=== PATIENT | male | born 1950 | race Caucasian/White ===

== ENCOUNTER → 2021-04-27 | Outpatient (CLI) | payer MEDICARE, OTHER ==
[~2021-04-27] MED LIST: CATHETER FLUSH 10 ML SYR IV PRN; HOLD METFORMIN - RECEIVED CONTRAST 20 ML VIAL IV SCH; IOHEXOL 350 MG/ML 100 ML (OMNIPAQUE 350) VIAL IV ONE; NS 100 ML (IVPB) BAG IV ONE
[2021-04-27 10:08] LABS: POTASSIUM 4.2 MMOL/L (3.6-5.0); SODIUM 141 MMOL/L (135-145)
[2021-04-27 10:09] LABS: ALANINE AMINOTRANSFERASE 24 U/L (0-55); ALBUMIN 4.7 GM/DL (3.2-4.5); ALKALINE PHOSPHATASE 123 U/L (40-136); BILIRUBIN,TOTAL 0.6 MG/DL (0.1-1.0); BUN/CREATININE RATIO 13; CALCIUM 9.2 MG/DL (8.5-10.1); CARBON DIOXIDE 26 MMOL/L (21-32); CHLORIDE 104 MMOL/L (98-107); CREATININE SERUM 0.96 MG/DL (0.60-1.30); GFR ESTIMATED > 60; GLUCOSE 98 MG/DL (70-105); TOTAL PROTEIN 7.4 GM/DL (6.4-8.2)
--- NOTE | 2021-04-27 10:53 | Diagnostic Imaging Report ---
PROCEDURE: CT angiography of the chest with contrast. TECHNIQUE: Multiple contiguous axial images were obtained through the chest after uneventful bolus administration of intravenous contrast. 3D reconstructed CTA MIP acquisitions were also performed. Auto Exposure Controls were utilized during the CT exam to meet ALARA standards for radiation dose reduction. INDICATION: Shortness of breath with bilateral leg swelling and elevated D-dimer. No prior studies are available for comparison. Evaluation of the pulmonary arterial system is without evidence of thromboembolism. No filling defects are seen within central, lobar or segmental branches. The thoracic aorta is normal caliber. There is no dissection. No pericardial or pleural fluid is identified. There are areas of linear atelectasis or scarring in the bilateral lower lobes. There is minimal atelectasis or scarring in the right upper lobe. No mass is identified. The upper abdomen is unremarkable. IMPRESSION: 1. No evidence of pulmonary embolism or thoracic aortic dissection. No acute feature is detected. Dictated by: Dictated on workstation # [id number]
== END ==
LOC: RAD FS 09:30
PROVIDERS: ATTEND Family Medicine
DX: R79.1 Abnormal coagulation profile (principal); R06.02 Shortness of breath; M79.89 Other specified soft tissue disorders
CPT/HCPCS: 36415; 71275; 80053

== ENCOUNTER → 2021-09-28 | Outpatient (CLI) | payer MEDICARE, OTHER ==
--- NOTE | 2021-09-28 11:10 | Diagnostic Imaging Report ---
PROCEDURE: CT chest without contrast. TECHNIQUE: Multiple contiguous axial images were obtained through the chest without the use of intravenous contrast. Auto Exposure Controls were utilized during the CT exam to meet ALARA standards for radiation dose reduction. INDICATION: Abnormal CT scan follow-up. Comparison with 04/27/2021. FINDINGS: Lungs are well aerated. There is scattered pleural scarring noted both in the upper lobes as well as within the lingula and middle lobe. There is some associated atelectasis as well. There is a solitary pulmonary nodule which is not calcified measuring 7 mm in the right lower lobe. This does show smooth margins. No other nodules are demonstrated. No mediastinal or hilar adenopathy of pathologic size. No pleural effusion or pericardial effusion. The adrenal glands are not enlarged. No bony abnormalities. There is a cyst in the left kidney laterally which is stable. IMPRESSION: 1. 7 mm round noncalcified nodule in the right lower lobe. Best demonstrated on image 97 series 5. Comparison with 04/27/2021 shows this to be stable. No new lesions are developed. Depending on patient's clinical risk factors follow-up per Fleischner recommendations. Dictated by: Dictated on workstation # [id number]
== END ==
LOC: RAD FS 10:33
PROVIDERS: ATTEND Family Medicine
DX: R91.1 Solitary pulmonary nodule (principal)
CPT/HCPCS: 71250